=== PATIENT | female | born 1945 | race Caucasian/White ===

== ENCOUNTER 2019-10-05 12:53 | Emergency (ER) | payer MEDICARE, MEDICAID, SELFPAY ==
--- NOTE | ~2019-10-05 | US_ITS ---
EXAMINATION: US venous doppler [facility] DATE: 10/05/2019 15:12 INDICATION: Lower limb edema. TECHNIQUE: Grayscale ultrasound images without and with compression and Doppler ultrasound images of the bilateral lower extremity veins were obtained. COMPARISON: None. FINDINGS: The visualized portions of right common femoral vein, profunda (deep) femoral vein, femoral vein, pop liteal vein, peroneal veins, posterior tibial veins, and greater saphenous vein outflow are patent. The visualized portions of left common femoral vein, profunda femoral vein, femoral vein, popliteal v ein, peroneal veins, posterior tibial veins, and greater saphenous vein outflow are patent. IMPRESSION: 1. No deep venous thrombosis. Reviewed, dictated and finalized at location B.
--- NOTE | ~2019-10-05 | CT_ITS ---
EXAMINATION: CT brain wo con, CT cervical spine wo con EXAM DATE: 10/05/2019 14:22 INDICATION: Fall, head injury. Chest pain. TECHNIQUE: Spiral CT of the head was performed without contrast. Axial, coronal and sagittal images were reviewed. Spiral CT of the cervical spine was performed without contrast. Axial images were rev iewed. Coronal and sagittal reformatted images were also reviewed. The dose-length product (DLP) fo r this examination was 605.33 (accession [id number]), 424.73 (accession [id number]) mGy-cm. The exposure was tailored according to patient size, and iterative reconstruction (ASIR) was used as additional dose reduction technique. Comparison is made to prior examination from 02/06/2017. FINDINGS: HEAD CT: Large old region of encephalomalacia involving most of the right temporal occipital and linad etal lobes. This is unchanged compared to prior study. There is mild to moderate microangiopathy an c erebral atrophy. There is no acute intraparenchymal hemorrhage. No evidence of intraparenchymal brai n mass lesion. No evidence of acute infarction. There is no mass effect or midline shift. There is n o obstructive hydrocephalus suspected. There are no extra-axial collections. There are no acute gamaliel varial fractures. The orbits are unremarkable. Soft tissue is unremarkable. The visualized sinuses and mastoid air cells are well aerated. Cerumen in the external auditory canals. CERVICAL CT: There is no evidence of acute cervical fracture. The odontoid process is intact. Pre- dens space is normal. Prevertebral soft tissue is normal. There are no soft tissue abnormalities id entified. There is no disc space widening or traumatic vertebral body subluxation suspected. Mild t o moderate cervical spondylosis. A detailed level by level evaluation of spondylosis can be added as addendum if requested. IMPRESSION: 1. No acute intracranial findings or cervical fracture. 2. Large old right cerebral infarction. 3. Age-related intracranial findings. 4. Mild to moderate cervical spondylosis. Reviewed, dictated and finalized at location A. IMPRESSION: 1. No acute intracranial findings or cervical fracture. 2. Large old right cerebral infarction. 3. Age-related intracranial findings. 4. Mild to moderate cervical spondylosis.
--- NOTE | ~2019-10-05 | CT_ITS ---
EXAMINATION: CT abdomen pelvis w con DATE: 10/05/2019 16:52 INDICATION: Right-sided abdominal pain TECHNIQUE: Computed tomography (CT) of the abdomen and pelvis was performed with 100 cc Omnipaque 350 intravenous contrast. The dose-length product was 1384.29 mGy-cm. Automated exposure control and ite rative reconstruction technique were employed. COMPARISON: None. FINDINGS: Cardiomegaly. There is atherosclerosis of the aorta and coronary arteries. No significant p leural or pericardial effusion. Bibasilar dependent atelectasis. No evidence for aortic aneurysm. Small fat-containing umbilical hernia. Diffuse bladder wall thickeni ng. No lymphadenopathy. There are gallstones. Fatty infiltration of the liver. The spleen, adrenal gl ands are unremarkable. There is bilateral renal atrophy. Nonobstructive bowel gas pattern. Severe lum bar spondylosis. No osteolytic or sclerotic lesions. IMPRESSION: 1. No acute abdominal abnormality. 2: Cholelithiasis. 3: Bladder wall thickening. Cannot exclude cystitis. Correlate with urinalysis. 4: Cardiomegaly. Reviewed, dictated and finalized at location A.
--- NOTE | ~2019-10-05 | XR_ITS ---
EXAMINATION: XR chest 2V EXAM DATE: 10/05/2019 14:27 INDICATION: Right-sided chest pain, breast region. Fall. TECHNIQUE: Frontal and lateral projections of the chest obtained and reviewed. Comparison is made to prior examination from 02/06/2017. FINDINGS: The lungs are clear. There are no pleural effusions. The cardiac silhouette is enlarged. Cardiac silhouette is stable in size compared to prior exam. There is no pneumothorax suspected. T here are mild bony degenerative changes. IMPRESSION: Cardiomegaly unchanged. Reviewed, dictated and finalized at location A. IMPRESSION: Cardiomegaly unchanged.
[2019-10-05 13:28] VITALS: BP 141/108; PULSE 81; RESP 19; TEMP 36.8; O2SAT 97
--- NOTE | 2019-10-05 13:39 | ECG_ITS ---
Measurements Intervals [place] Rate: 80 P: IA: 0 QRS: 105 QRSD: 156 T: -42 QT: 417 QTc: 482 Interpretive Statements ATRIAL FIBRILLATION VENTRICULAR PREMATURE COMPLEX RIGHT AXIS DEVIATION RIGHT BUNDLE BRANCH BLOCK ABNORMAL ECG Electronically Signed On 10-05-2019 14:25:13 CDT by bAimael Mcbride D.O.
[2019-10-05 14:17] LABS: Basophils Percent Auto 0.5 % (0.2-1.2); Eosinophils Percent Auto 0.5 % (0-4.4); Hematocrit 36.2 % (37.0-47.0); Hemoglobin 11.7 g/dL (12.0-15.0); Immature Granulocyte Absolute 0.02 K/mm3 (0.00-0.031); Immature Granulocyte Percent A 0.3 % (0-0.5); Lymphocytes Absolute Auto 1.96 K/mm3 (0.9-3.2); Lymphocytes Percent Auto 25.6 % (18.3-44.2); Mean Corpuscular HGB Conc 32.3 g/dl (32-36); Mean Corpuscular Hemoglobin 28.5 pg (26-34); Mean Corpuscular Volume 88.3 fl (80-100); Mean Platelet Volume 12.7 fl (7.4-10.4); Monocytes Absolute Auto 0.6 K/mm3 (0.1-0.6); Monocytes Percent Auto 7.5 % (2.6-8.5); Neutrophils Percent Auto 65.6 % (45.5-73.1); Platelet Count Result 227 k/mm3 (150-375); Red Cell Distribution Width 18.4 % (11.5-14.5); White Blood Count 7.7 K/mm3 (4.5-10.0)
[2019-10-05 14:27] LABS: INR 1.7; Prothrombin Time 19.1 Seconds (11.1-14.7)
[2019-10-05 14:28] LABS: Partial Thromboplastin Time 27.9 SECONDS (22.3-36.8)
[2019-10-05 14:30] LABS: Alanine Aminotransferase 37 U/L (4-35); Albumin Level 4.2 g/dL (3.5-5.1); Alkaline Phosphatase 121 U/L (38-126); Anion Gap 8 mmol/L (8-16); Aspartate Amino Transferase 44 U/L (14-36); Bilirubin,Total 0.4 mg/dL (0.2-1.3); Blood Urea Nitrogen 31 mg/dL (7-17); Calcium 9.2 mg/dL (8.4-10.2); Carbon Dioxide 31 mmol/L (22-30); Chloride 99 mmol/L (98-107); Estimated CRCL calculation 55 ml/min; Estimated Glomerular Filt Rate > 60; Glucose 264 mg/dL (65-105); Lipase 72 U/L (23-300); Potassium 4.1 mmol/L (3.4-5.0); Sodium 138 mmol/L (137-145)
--- NOTE | 2019-10-05 14:30 | ED.CHESTPAIN ---
HPI - Chest Pain General Chief Complaint: Chest Pain Stated Complaint: CP Time Seen by Provider: 10/05/19 13:04 Source: patient Mode of arrival: EMS Limitations: other (poor historian) History of Present Illness HPI narrative: This is a 74 year old female that presents to the ER for right sided chest pain since this morning. Also reports shortness of breath. Reports a chronic cough. Reports she started having neck pain this morning too. No injury today, but does note a fall a couple of days ago. Reports she fell forward out of her wheelchair. Reports she did not hit her head or lose consciousness. Was not having any new joint pain after the fall. Also reports dysuria. Denies fever. Related Data Home Medications Medication Instructions Recorded Confirmed atorvastatin 10/05/19 carvedilol 10/05/19 colchicine mg 10/05/19 10/05/19 famotidine 10/05/19 febuxostat mg 10/05/19 furosemide 10/05/19 icosapent ethyl [Vascepa] g PO 10/05/19 indomethacin 10/05/19 insulin aspart U-100 [Novolog unit SUBCUT 10/05/19 Flexpen U-100 Insulin] insulin degludec [Tresiba unit SUBCUT 10/05/19 FlexTouch U-200] lisinopril 10/05/19 mirabegron [Myrbetriq] mg PO 10/05/19 rivaroxaban [Xarelto] mg 10/05/19 sulfamethoxazole-trimethoprim 10/05/19 tramadol mg 10/05/19 Allergies Allergy/AdvReac Type Severity Reaction Status Date / Time No Known Allergies Allergy Verified 10/05/19 13:32 Review of Systems Review of Systems: Narrative: CONSTITUTIONAL: Denies fever CARDIOVASCULAR: Reports chest pain, and edema. RESPIRATORY: Reports cough and dyspnea. GASTROINTESTINAL: Reports abdominal pain. Denies nausea, vomiting, or diarrhea. GENITOURINARY: Reports dysuria MUSCULOSKELETAL: Reports neck pain. Denies back pain, joint pain, or myalgia. NEUROLOGIC: Denies new numbness, or weakness. All systems reviewed & are unremarkable except as noted in HPI and below PMFSH Past Medical History Medical History (Updated 10/05/19 @ 18:30 by Belia Cortez PA-C) History of CHF (congestive heart failure) History of CVA (cerebrovascular accident) History of diabetes mellitus History of gastroesophageal reflux (GERD) History of gout History of hyperlipidemia History of hypertension Social History Social History Gender identity (if verbalized by the patient): Female Exam Narrative: Exam Narrative: GENERAL: Well-appearing, obese, and in no acute distress. HEAD: Normocephalic, atraumatic. EYES: PERRLA and EOMI. ENT: Nares clear, no rhinorrhea or epistaxis. Mucous membranes moist. Oropharynx without tonsillar hypertrophy exudate or other lesions. Bilateral TMs pearly capellan non-bulging NECK: Supple. No adenopathy or masses. Normal ROM CHEST: Clear to auscultation. No respiratory distress. No wheezes rales or rhonchi HEART: Regular rate and rhythm. No murmur heard. Normal peripheral pulses. ABDOMEN: Soft, nondistended, normal active bowel sounds. Tender to palpation of the right side of the abdomen, without guarding EXTREMITIES: Decreased active ROM in the left upper and lower extremity due to history of previous CVA. 1+ pitting edema bilaterally (L>R) SKIN: Warm, dry, no rash. NEURO: Patient with chronic weakness in the left upper and lower extremity after a previous CVA. Alert and oriented x3. PSYCH: Normal mood and affect Course Consultations Consultation #1: Spoke with Dr. Win, cardiology about patient and workup. Reports patient does have history of significant CAD. Since her baseline and 3 hour troponins are negative and she is not currently having any chest pain, she may be discharged and follow up as an outpatient. Wants 30mg of Imdur to be added on daily Date: 10/05/19 Time: 18:27 Consultation #2: Spoke with Dr. Garcia further outpatient work-up will follow-up outpatient Date: 10/05/19 Time: 18:28 Vital Signs Vital signs: Vital Signs Temperature 98.2 F 10/05/19 13:28 Pulse Rate 81 10/05/19 13:28 Respiratory Rate
[2019-10-05 14:31] LABS: Lactic Acid Reflex 1.8 mmol/L (0.7-2.1)
[2019-10-05 14:34] LABS: CRP 0.5 mg/dL (<1.0)
[2019-10-05 14:39] LABS: NT Pro B Type Natriuretic Pept 2980 PG/ML (5-100)
[2019-10-05 14:42] LABS: Troponin I 0.029 ng/mL (0.000-0.034)
[2019-10-05 14:56] LABS: D Dimer 0.44 ug/mL (<0.48)
[2019-10-05 15:47] LABS: Add Urine Microscopic? YES; Appearance Urine Cloudy (Clear); Bacteria Urine 2+ /hpf; Bilirubin Urine Negative (Negative); Blood Urine 1+ (Negative); Glucose Urine UA 3+ mg/dL (Negative); Ketones Urine Negative (Negative); Leukocyte Esterase Ur 3+ LEU/UL (Negative); Mucus Urine Rare /lpf; Nitrate Urine Negative (Negative); Protein Urine 1+ mg/dL (Negative); RBC Urine 21-50 /hpf (0-2); Squamous Epithelial Cell Urine Rare /hpf (Few); Urobilinogen Urine Negative mg/dL (<2.0); WBC Urine >75 /hpf
[2019-10-05 15:50] LABS: Color Urine Yellow (Yellow)
[2019-10-05 16:40] LABS: Troponin I 0.027 ng/mL (0.000-0.034)
[2019-10-05 18:16] VITALS: BP 140/79; PULSE 71; RESP 20; O2SAT 96
[2019-10-05 18:17] VITALS: PULSE 76; RESP 23; O2SAT 98
[2019-10-05 19:08] VITALS: BP 149/93; PULSE 68; RESP 16
== END 2019-10-05 19:10 ==
PROVIDERS: Physician Assistant; Emergency Provider Emergency Medicine; PCP Internal Medicine
DX: K80.20 Calculus of gallbladder without cholecystitis without obstruction (principal); I50.9 Heart failure, unspecified; Z86.73 Personal history of transient ischemic attack (TIA), and cerebral infarction without residual deficits; E11.9 Type 2 diabetes mellitus without complications; K21.9 Gastro-esophageal reflux disease without esophagitis; M10.9 Gout, unspecified; E78.5 Hyperlipidemia, unspecified; I11.0 Hypertensive heart disease with heart failure; M47.812 Spondylosis without myelopathy or radiculopathy, cervical region; I51.7 Cardiomegaly; Z79.4 Long term (current) use of insulin; Z79.01 Long term (current) use of anticoagulants; I25.10 Atherosclerotic heart disease of native coronary artery without angina pectoris; R82.998 Other abnormal findings in urine; I48.91 Unspecified atrial fibrillation; I49.3 Ventricular premature depolarization; I45.10 Unspecified right bundle-branch block
CPT/HCPCS: 36415; 70450; 71046; 72125; 74177; 80053; 81001; 83605; 83690; 83880; 84484; 85025; 85380; 85610; 85730; 86140; 87040; 87077; 87086; 87088; 87186; 93005; 93970; 96374; 96375; 99284; J0131; J0696; Q9967

== ENCOUNTER 2020-04-08 17:39 | Outpatient (NON) | payer MEDICARE, SELFPAY ==
[2020-04-08 17:53] LABS: Add Urine Microscopic? YES; Appearance Urine Clear (Clear); Bilirubin Urine Negative (Negative); Blood Urine 2+ (Negative); Color Urine Yellow (Yellow); Glucose Urine UA Negative (Negative); Ketones Urine Negative (Negative); Leukocyte Esterase Ur 1+ (Negative); Nitrate Urine Positive (Negative); Protein Urine Negative (Negative); Urobilinogen Urine 0.2 mg/dL (0.2-1.0); pH Urine 5.5 (5.0-8.0)
[2020-04-08 18:00] LABS: Bacteria Urine 3+ /hpf; Squamous Epithelial Cell Urine Rare /hpf (Few); WBC Urine 51-75 /hpf (0-3)
== END 2020-04-08 17:40 ==
LOC: CHSLAB 17:40
PROVIDERS: Visit Provider Internal Medicine
DX: N39.0 Urinary tract infection, site not specified (principal)
CPT/HCPCS: 81001; 87077; 87086; 87088; 87186

== ENCOUNTER 2021-07-22 11:47 | Outpatient (NON) | payer MEDICARE, SELFPAY ==
[2021-07-22 12:41] LABS: Vancomycin Trough 11.5 ug/mL (10.0-20.0)
== END 2021-07-22 11:48 | disposition home or self-care (01) ==
PROVIDERS: PCP Internal Medicine; Visit Provider Internal Medicine
DX: Z79.899 Other long term (current) drug therapy (principal)
CPT/HCPCS: 80202